=== PATIENT | female | born 1970 | race Two or more races ===

== ENCOUNTER 2018-06-05 14:02 | Emergency (ER) | payer SELFPAY ==
[~2018-06-05] VITALS: Ht 157.5 cm; Wt 58.5 kg
[2018-06-05 14:11] VITALS: BP 155/93
--- NOTE | 2018-06-05 14:30 | NUR ---
pt to ed for burning with urination x 3 days. vss. no needs at this time. urine collected and sentt. pa assessment complete. awaiting further orders.
[2018-06-05 14:58] LABS: CULTURE INDICATED? YES; MICROSCOPIC INDICATED
== END 2018-06-05 15:41 | disposition home or self-care (01) ==
LOC: ED 15:01
DX: N30.00 Acute cystitis without hematuria (principal)
CPT/HCPCS: 81001; 87086; 99283